=== PATIENT | female | born 1995 | race Caucasian/White ===

== ENCOUNTER 2017-02-19 22:41 | Emergency (ER) | payer OTHER ==
[~2017-02-19] VITALS: Ht 167.6 cm; Wt 61.0 kg
[2017-02-19 22:44] VITALS: BP 134/88
--- NOTE | 2017-02-20 00:07 | NUR ---
PT TAKEN TO BED 6
--- NOTE | 2017-02-20 00:13 | NUR ---
21/F BIB FAMILY C/O SORE THROAT x 3 DAYS. PT STATES SHE HAS COLD SYMPTOMS x 3 DAYS. PAIN 9/10 ACHING NON-RADIATING. PT STATES SHE WAS TAKING OTC COUGH SYRUP PRIOR TO ER VISIT. DENIES N/V/D; SKIN IS PINK/WARM/DRY; AAOX4 WITH EVEN AND STEADY GAIT; LUNGS CLEAR BL; HR EVEN AND REGULAR; PT DENIES ANY FEVER, CP, SOB, OR COUGH AT THIS TIME; VSS; PATIENT POSITIONED FOR COMFORT; HOB ELEVATED; BEDRAILS UP X2; BED DOWN. ER MD MADE AWARE OF PT STATUS.
--- NOTE | 2017-02-20 00:29 | NUR ---
Dr. Ames evaluating patient at bedside.
[2017-02-20 00:46] VITALS: BP 120/78
--- NOTE | 2017-02-20 00:46 | NUR ---
Patient discharged with v/s stable. Written and verbal after care instructions given and explained. Patient alert, oriented and verbalized understanding of instructions. Ambulatory with steady gait. All questions addressed prior to discharge. ID band removed. Patient advised to follow up with PMD. NO Rx WERE given. Patient educated on indication of medication including possible reaction and side effects. Opportunity to ask questions provided and answered.
== END 2017-02-20 00:46 | disposition home or self-care (01) ==
LOC: MED 22:41
DX: J02.8 Acute pharyngitis due to other specified organisms (principal)
CPT/HCPCS: 99283

== ENCOUNTER 2017-07-19 15:28 | Emergency (ER) | payer OTHER ==
[~2017-07-19] VITALS: Ht 167.6 cm; Wt 60.0 kg
[2017-07-19 15:41] VITALS: BP 130/78
--- NOTE | 2017-07-19 15:50 | NUR ---
PATIENT AMBULATED TO BED 3.
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
--- NOTE | 2017-07-19 16:13 | NUR ---
DR TREVINO AT BEDSIDE.
[2017-07-19 16:43] VITALS: BP 106/74
== END 2017-07-19 16:43 | disposition home or self-care (01) ==
LOC: MED 15:28
DX: S16.1XXA Strain of muscle, fascia and tendon at neck level, initial encounter (principal); S33.5XXA Sprain of ligaments of lumbar spine, initial encounter; R03.0 Elevated blood-pressure reading, without diagnosis of hypertension; V43.52XA Car driver injured in collision with other type car in traffic accident, initial encounter; Y93.89 Activity, other specified; Y92.411 Interstate highway as the place of occurrence of the external cause; Y99.8 Other external cause status
CPT/HCPCS: 99283

== ENCOUNTER 2017-10-28 20:15 | Emergency (ER) | payer OTHER ==
[~2017-10-28] VITALS: Ht 165.1 cm; Wt 59.6 kg
[2017-10-28 20:22] VITALS: BP 159/86
[2017-10-28 21:27] LABS: APPEARANCE,URINE CLEAR (CLEAR); BILIRUBIN,URINE NEGATIVE (NEGATIVE); BLOOD, URINE 1+ (NEGATIVE); COLOR,URINE YELLOW (YELLOW); LEUKOCYTE ESTERASE ,URINE NEGATIVE (NEGATIVE); NITRITE, URINE NEGATIVE (NEGATIVE); RBC,URINE 3-10 (FEW) /HPF (0-5); UGLUCOSE NEGATIVE (NEGATIVE); WBC,URINE 0-5 (RARE) /HPF (0-5)
[2017-10-28 22:08] LABS: ANION GAP 15.5 (8-16); CARBON DIOXIDE 26.3 mmol/L (21-32); CREATININE 0.7 mg/dL (0.6-1.3); POTASSIUM 3.8 mmol/L (3.5-5.1)
[2017-10-28 22:14] LABS: ALBUMIN 4.3 g/dL (3.4-5.0); TOTAL BILIRUBIN 0.5 mg/dL (0.0-1.0)
[2017-10-28 22:17] LABS: BASOPHILS # (AUTO) 0.1 K/uL (0.00-0.22); BASOPHILS % (AUTO) 0.6 % (0.0-2.0); EOSINOPHILS # (AUTO) 0.1 K/uL (0-0.4); EOSINOPHILS % (AUTO) 0.5 % (0.0-4.0); HEMATOCRIT 45.9 % (36-48); HEMOGLOBIN 15.2 g/dL (12.0-16.0); LYMPHOCYTES # (AUTO) 1.1 K/uL (2.5-16.5); LYMPHOCYTES % (AUTO) 10.7 % (20.5-51.1); MEAN CORPUSCULAR HEMOGLOBIN 29 pg (27-31); MEAN CORPUSCULAR HGB CONC 33 g/dL (33-37); MEAN CORPUSCULAR VOLUME 88 fL (80-94); MONOCYTES # (AUTO) 0.3 K/uL (0.8-1.0); MONOCYTES % (AUTO) 3.1 % (1.7-9.3); NEUTROPHILS # (AUTO) 8.7 K/uL (1.8-7.7); NEUTROPHILS % (AUTO) 85.1 % (42.2-75.2); PLATELET COUNT (AUTO) 290 K/uL (140-450); RED BLOOD CELL COUNT(AUTO) 5.24 MIL/uL (4.20-5.40); RED CELL DISTRIBUTION WIDTH 12.4 % (11.6-13.7); WHITE BLOOD COUNT (AUTO) 10.3 K/uL (4.8-10.8)
[2017-10-28] MEDS ORDERED: HYDROcodone/APAP 5/325 MG 1 TAB TAB PO ONE (22:55)
[2017-10-28] MEDS ORDERED: ONDANSETRON 4 MG ODT PO ONE (22:55)
[2017-10-28 23:36] VITALS: BP 144/81
== END 2017-10-28 23:29 | disposition home or self-care (01) ==
LOC: MED 20:15
DX: A08.4 Viral intestinal infection, unspecified (principal)
CPT/HCPCS: 36415; 80053; 81001; 81025; 82150; 83690; 84703; 85025; 99284; S0119

== ENCOUNTER 2018-06-16 21:23 | Emergency (ER) | payer OTHER ==
[~2018-06-16] VITALS: Ht 167.6 cm; Wt 57.3 kg
[2018-06-16 22:05] VITALS: BP 119/72
--- NOTE | 2018-06-16 22:38 | NUR ---
PT AMBULATED TO ER BED 8
--- NOTE | 2018-06-16 23:11 | NUR ---
PT BIB SELF C/O HEADACHE, WEAKNESS AND NAUSEA FOR 1 WEEK SINCE TRIP TO [place]. PT STATES SHE HAS BEEN TO PCP AND HAD B12 VITAMIN SHOT. PT STILL FEELS THE SAME. PT IS AWAKE AND ACTING APPROPRIATE APPEARS TO BE IN NO APPARENT DISTRESS. ABD IS FLAT, SOFT, NON TENDER, ACTIVE BS X4. NO PMH, NKDA
[2018-06-16] MEDS ORDERED: diphenhydrAMINE 50 MG/ML VIAL IVP ONE (23:15)
[2018-06-16] MEDS ORDERED: METOCLOPRAMIDE 10 MG/2 ML INJ VIAL IVP ONE (23:15)
[2018-06-16] MEDS ORDERED: NACL 0.9% 1,000 ML IV ONE (23:15)
[2018-06-17] MEDS ORDERED: ONDANSETRON 4 MG/2 ML VIAL IVP ONE (00:20)
[2018-06-17] MEDS ORDERED: KETOROLAC 30 MG/ML VIAL IVP ONE (00:20)
--- NOTE | 2018-06-17 01:01 | NUR ---
Patient discharged with v/s stable. Written and verbal after care instructions given and explained. Patient alert, oriented and verbalized understanding of instructions. Ambulatory with steady gait. All questions addressed prior to discharge. ID band removed. Patient advised to follow up with PMD. Rx of ZOFRAN, MOTRIN given. Patient educated on indication of medication including possible reaction and side effects. Opportunity to ask questions provided and answered.
[2018-06-17 01:05] VITALS: BP 120/70
== END 2018-06-17 01:02 | disposition home or self-care (01) ==
LOC: MED 21:23
DX: R51 Headache (principal); R11.0 Nausea
CPT/HCPCS: 81002; 81025; 96374; 96375; 99284; J1885; J2405; J7030; J1200; J2765

== ENCOUNTER 2018-06-24 16:38 | Emergency (ER) | payer OTHER ==
[~2018-06-24] VITALS: Ht 167.6 cm; Wt 56.4 kg
[2018-06-24 16:53] VITALS: BP 131/75
[2018-06-24 18:10] VITALS: BP 121/69
== END 2018-06-24 18:10 | disposition home or self-care (01) ==
LOC: MED 16:38
DX: R11.2 Nausea with vomiting, unspecified (principal); R51 Headache; R63.0 Anorexia
CPT/HCPCS: 74018; 81025; 99283; Q0092